=== PATIENT | female | born 1990 | race Caucasian/White ===

== ENCOUNTER 2017-01-18 20:20 | Emergency (ER) | payer SELFPAY ==
[~2017-01-18] VITALS: Ht 160 cm; Wt 59.0 kg
[2017-01-18 22:22] VITALS: BP 116/64
== END 2017-01-18 22:24 | disposition home or self-care (01) ==
LOC: EMS 20:22
DX: J20.9 Acute bronchitis, unspecified (principal); F17.210 Nicotine dependence, cigarettes, uncomplicated
CPT/HCPCS: 99283

== ENCOUNTER 2017-01-24 20:50 | Emergency (ER) | payer MEDICAID ==
[~2017-01-24] VITALS: Ht 167.6 cm; Wt 65.0 kg
[2017-01-24 22:14] VITALS: BP 122/82
== END 2017-01-24 22:18 | disposition left against medical advice (07) ==
LOC: EMS 20:51
DX: F41.0 Panic disorder [episodic paroxysmal anxiety] (principal); F32.9 Major depressive disorder, single episode, unspecified; F17.210 Nicotine dependence, cigarettes, uncomplicated; Z53.21 Procedure and treatment not carried out due to patient leaving prior to being seen by health care provider

== ENCOUNTER 2019-05-13 09:18 | Emergency (ER) | payer MEDICAID, OTHER ==
[~2019-05-13] VITALS: Ht 167.6 cm; Wt 81.8 kg
[2019-05-13] MEDS ORDERED: PROPARACAINE HCL 0.5% 15 ML OPHTHALMIC SOLUTION OU ONE (10:15)
[2019-05-13] MEDS ORDERED: FLUORESCEIN SODIUM 1 MG STRIP OU ONE (10:15)
[2019-05-13] MEDS ORDERED: ERYTHROMYCIN 0.5% 3.5 GM TUBE OPHTHALMIC OINTMENT OD ONE (11:30)
[2019-05-13 12:04] VITALS: BP 128/76
== END 2019-05-13 12:05 | disposition home or self-care (01) ==
LOC: EMS 09:19
DX: H10.89 Other conjunctivitis (principal); F41.9 Anxiety disorder, unspecified; J45.909 Unspecified asthma, uncomplicated; F32.9 Major depressive disorder, single episode, unspecified; E03.9 Hypothyroidism, unspecified; F17.210 Nicotine dependence, cigarettes, uncomplicated
CPT/HCPCS: 99406

== ENCOUNTER 2019-06-20 15:58 | Emergency (ER) | payer OTHER ==
[~2019-06-20] VITALS: Ht 167.6 cm; Wt 78.0 kg
[2019-06-20] MEDS ORDERED: ALBU8HFA IH (16:04)
[2019-06-20] MEDS ORDERED: IPRATROPIUM BROMIDE 0.5 MG/2.5 ML NEB SOLUTION NEB ONE (17:00)
[2019-06-20] MEDS ORDERED: ALBUTEROL SULFATE 2.5 MG/0.5 ML NEB SOLUTION NEB ONE (17:00)
[2019-06-20] MEDS ORDERED: PredniSONE 20 MG TABLET PO ONE (17:00)
[2019-06-20 17:19] LABS: BASOPHILS % (AUTO) 0.3 % (0.0-2.0); LYMPHOCYTES # (AUTO) 2.2 K/uL (1.0-4.8); MEAN CORPUSCULAR HEMOGLOBIN 28.6 pg (26.0-34.0); MEAN CORPUSCULAR HGB CONC 32.5 G/dL (31.0-37.0); MEAN CORPUSCULAR VOLUME 88 fL (80-100); MONOCYTES # (AUTO) 0.7 K/uL (0.1-1.0); MONOCYTES % (AUTO) 8.3 % (2.0-9.0); NEUTROPHILS # (AUTO) 4.9 K/uL (1.8-7.7); NEUTROPHILS % (AUTO) 55.4 % (40.0-70.0); PLATELET COUNT (AUTO) 275 K/uL (150-450); RED CELL DISTRIBUTION WIDTH 13.4 % (11.5-14.5)
[2019-06-20 17:30] LABS: ANION GAP 11 mmol/L (8-16); CALCIUM, TOTAL 9.3 mg/dL (8.8-10.5); CARBON DIOXIDE 25 mmol/L (22-29); CHLORIDE 99 mmol/L (98-107); CREATININE 0.69 mg/dL (0.60-1.30); GLOMERULAR FILTR. RATE CALC > 60 mL/min (>60); GLUCOSE,RANDOM 87 mg/dL (70-110); POTASSIUM 3.2 mmol/L (3.5-5.1); SODIUM SERUM 135 mmol/L (136-145); UREA NITROGEN, BLOOD 12 mg/dL (7-18)
[2019-06-20 17:36] LABS: ALANINE AMINOTRANSFERASE 11 U/L (12-78); ALBUMIN 3.4 g/dL (3.4-5.0); ALKALINE PHOSPHATASE 78 U/L (46-116); ASPARTATE AMINOTRANSFERASE 21 U/L (15-37); BILIRUBIN,TOTAL 0.5 mg/dL (0.1-1.0); TOTAL PROTEIN, SERUM 7.6 g/dL (6.4-8.2)
[2019-06-20 17:55] VITALS: BP 115/70
[2019-06-20 18:36] LABS: HCG,QUANTITATIVE 66323 mIU/mL (0-6)
== END 2019-06-20 19:00 | disposition home or self-care (01) ==
LOC: EMS 16:00
DX: O99.511 Diseases of the respiratory system complicating pregnancy, first trimester (principal); O99.331 Smoking (tobacco) complicating pregnancy, first trimester; O99.341 Other mental disorders complicating pregnancy, first trimester; J45.901 Unspecified asthma with (acute) exacerbation; F32.9 Major depressive disorder, single episode, unspecified; E03.9 Hypothyroidism, unspecified; F17.210 Nicotine dependence, cigarettes, uncomplicated; F41.9 Anxiety disorder, unspecified; Z3A.11 11 weeks gestation of pregnancy
CPT/HCPCS: 36415; 76801; 76817; 80053; 81025; 84702; 85025; 94640; 99284; J7512

== ENCOUNTER 2020-03-20 05:50 | Emergency (ER) | payer OTHER ==
[~2020-03-20] VITALS: Ht 165.1 cm; Wt 63.6 kg
[~2020-03-20 05:50] MED LIST: ALBU8HFA IH
[2020-03-20] MEDS ORDERED: ALBUTEROL SULFATE 5 MG/ML 20 ML NEB SOLN [BULK] NEB ONE (06:00)
[2020-03-20] MEDS ORDERED: MethylPREDNISolone SOD SUCC 125 MG/2 ML VIAL IVP ONE (06:00)
[2020-03-20] MEDS ORDERED: IPRATROPIUM BROMIDE 0.5 MG/2.5 ML NEB SOLUTION NEB ONE (06:00)
[2020-03-20 06:12] LABS: ABG A-A DIFF O2 473.7 mmHg (10-20.0); ABG BASE EXCESS 1.6 mmol/L (-2.0-3.0); ABG CARBOXYHEMOGLOBIN 0.3 % (0.0-3.0); ABG METHEMOGLOBIN 0.2 % (0.0-1.5); ABG OXYGEN CONTENT 18.2 mL/dL (15.0-23.0); ABG OXYHEMOGLOBIN 98.5 % (94.0-100.0); ABG PCO2 37 mmHg (35-45); ABG PH 7.453 (7.350-7.450); ABG TOTAL HEMOGLOBIN 12.8 G/dL (12.0-18.0); SOURCE, BLOOD GAS ARTERIAL; TEMPERATURE, FAHRENHEIT, BG 98.6 FAHREN (96.0-98.6)
[2020-03-20 06:22] LABS: BASOPHILS % (AUTO) 0.8 % (0.0-2.0); HEMATOCRIT 38.6 % (36-46); HEMOGLOBIN 12.1 g/dL (12.0-16.0); LYMPHOCYTES # (AUTO) 2.7 K/uL (1.0-4.8); LYMPHOCYTES % (AUTO) 36.3 % (22.0-44.0); MEAN CORPUSCULAR HGB CONC 31.4 G/dL (31.0-37.0); MEAN CORPUSCULAR VOLUME 89 fL (80-100); MONOCYTES # (AUTO) 0.8 K/uL (0.1-1.0); MONOCYTES % (AUTO) 10.6 % (2.0-9.0); NEUTROPHILS # (AUTO) 1.8 K/uL (1.8-7.7); NEUTROPHILS % (AUTO) 24.8 % (40.0-70.0); PLATELET COUNT (AUTO) 233 K/uL (150-450); RED BLOOD CELL COUNT(AUTO) 4.34 MIL/uL (4.00-5.20); RED CELL DISTRIBUTION WIDTH 15.3 % (11.5-14.5)
[2020-03-20 06:26] LABS: EOSINOPHILS % (AUTO) 27.5 % (1.0-6.0)
[2020-03-20 06:27] LABS: O2 DEVICE,BLOOD GAS NRB (ROOM AIR); SITE, BLOOD GAS RT RADIAL
[2020-03-20 06:28] LABS: ANION GAP 9 mmol/L (8-16); CALCIUM, TOTAL 8.7 mg/dL (8.8-10.5); CARBON DIOXIDE 29 mmol/L (22-29); CHLORIDE 105 mmol/L (98-107); CREATININE 0.82 mg/dL (0.60-1.30); GLOMERULAR FILTR. RATE CALC > 60 mL/min (>60); GLUCOSE,RANDOM 103 mg/dL (70-110); POTASSIUM 3.3 mmol/L (3.5-5.1); SODIUM SERUM 143 mmol/L (136-145); UREA NITROGEN, BLOOD 9 mg/dL (7-18)
[2020-03-20] MEDS ORDERED: MAGNESIUM SULFATE 2 GM in DEXTROSE 5%-WATER 100 ML IV ONE (06:30)
[2020-03-20 06:53] LABS: ALANINE AMINOTRANSFERASE 64 U/L (12-78); ALBUMIN 3.6 g/dL (3.4-5.0); ALKALINE PHOSPHATASE 68 U/L (46-116); ASPARTATE AMINOTRANSFERASE 60 U/L (15-37); BILIRUBIN,TOTAL 0.5 mg/dL (0.1-1.0); CREATINE KINASE, TOTAL ONLY 148 U/L (26-192); TOTAL PROTEIN, SERUM 7.6 g/dL (6.4-8.2)
[2020-03-20 06:55] LABS: LACTIC ACID 1.1 mmol/L (0.4-2.0)
[2020-03-20 07:09] LABS: SALICYLATE 0.6 mg/dL (2.8-20.0)
[2020-03-20 07:28] LABS: FREE T4 (FREE THYROXINE) 1.02 ng/dL (0.76-1.46); HCG,QUANTITATIVE < 1 mIU/mL (0-6); THYROID STIMULATING HORMONE 2.07 uIU/mL (0.36-3.74)
[2020-03-20 07:58] LABS: ACETAMINOPHEN < 2 mcg/mL (10-30)
[2020-03-20] MEDS ORDERED: 0.9% SODIUM CHLORIDE 10 ML SYRINGE IVP PRN (09:00)
[2020-03-20] MEDS ORDERED: ONDANSETRON HCL 4 MG/2 ML VIAL IVP PRN (09:00)
[2020-03-20] MEDS ORDERED: ACETAMINOPHEN 325 MG TABLET PO PRN (09:00)
[2020-03-20 09:35] LABS: C-REACTIVE PROTEIN QUANT 0.54 mg/dL (0.00-0.30); LACTATE DEHYDROGENASE 467 U/L (81-234)
[2020-03-20 09:59] LABS: FERRITIN 23 ng/mL (8-252)
[2020-03-20 16:15] VITALS: BP 112/74
== END 2020-03-20 16:30 | disposition left against medical advice (07) ==
LOC: EMS 05:50
DX: J96.90 Respiratory failure, unspecified, unspecified whether with hypoxia or hypercapnia (principal); J45.51 Severe persistent asthma with (acute) exacerbation; F41.9 Anxiety disorder, unspecified; F32.9 Major depressive disorder, single episode, unspecified; F17.210 Nicotine dependence, cigarettes, uncomplicated; Z20.828 Contact with and (suspected) exposure to other viral communicable diseases; Z99.81 Dependence on supplemental oxygen
CPT/HCPCS: 31500; 36415; 36600; 71045; 80053; 82550; 82728; 82805; 83605; 83615; 83880; 84145; 84439; 84443; 84484; 84702; 85025; 85379; 86140; 87635; 93005; 94640; 94660; 96365; 96375; 99291; G0480; J3475; J7060; U0003; G0481

== ENCOUNTER 2021-04-09 09:24 | Emergency (ER) | payer MEDICAID, OTHER ==
[~2021-04-09] VITALS: Ht 165.1 cm; Wt 71.8 kg
[2021-04-09 09:29] VITALS: BP 101/51
== END 2021-04-09 12:09 | disposition home or self-care (01) ==
LOC: EMS 09:26
DX: H10.9 Unspecified conjunctivitis (principal); F32.9 Major depressive disorder, single episode, unspecified; F41.9 Anxiety disorder, unspecified; F17.210 Nicotine dependence, cigarettes, uncomplicated
CPT/HCPCS: 99283; Z7502

== ENCOUNTER 2021-04-12 21:04 | Emergency (ER) | payer OTHER ==
[~2021-04-12] VITALS: Ht 165.1 cm; Wt 70.5 kg
[2021-04-12 22:28] VITALS: BP 109/68
[2021-04-12] MEDS ORDERED: DOCUSATE SODIUM 100 MG CAPSULE PO ONE (22:30)
[2021-04-12] MEDS ORDERED: MINERAL OIL 133 ML ENEMA PR ONE (22:30)
== END 2021-04-12 22:47 | disposition home or self-care (01) ==
LOC: EMS 21:08
DX: K59.00 Constipation, unspecified (principal); J45.909 Unspecified asthma, uncomplicated; F32.9 Major depressive disorder, single episode, unspecified; F41.9 Anxiety disorder, unspecified; F17.210 Nicotine dependence, cigarettes, uncomplicated; Z79.899 Other long term (current) drug therapy
CPT/HCPCS: 99284; Z7502; Z7610

== ENCOUNTER 2021-10-08 02:32 | Emergency (ER) | payer OTHER ==
[~2021-10-08] VITALS: Ht 160 cm; Wt 60.0 kg
[2021-10-08] MEDS ORDERED: PredniSONE 20 MG TABLET PO ONE (03:15)
[2021-10-08] MEDS ORDERED: ALBUTEROL SULFATE HFA 90 MCG/PUFF 8 GM INHALER IH ONE (03:15)
[2021-10-08 03:18] LABS: COVID AG,FIA SOURCE NASOPHARYNGEAL
[2021-10-08 05:11] VITALS: BP 121/101
== END 2021-10-08 05:38 | disposition home or self-care (01) ==
LOC: EMS 02:33
DX: J45.901 Unspecified asthma with (acute) exacerbation (principal); F41.9 Anxiety disorder, unspecified; E03.9 Hypothyroidism, unspecified; F17.210 Nicotine dependence, cigarettes, uncomplicated; Z79.899 Other long term (current) drug therapy; Z20.822 Contact with and (suspected) exposure to COVID-19
CPT/HCPCS: 87426; 94640; 99285; J7512; J3535